=== PATIENT | female | born 1960 | race African-American/Black ===

== ENCOUNTER 2016-07-09 12:35 | Emergency (ER) | payer OTHER ==
[2016-07-09 12:48] VITALS: BP 139/93; PULSE 104; TEMP 98.2; BMI 29.5
== END 2016-07-09 13:53 | disposition left against medical advice (07) ==
LOC: JER 12:35
DX: Z53.21 Procedure and treatment not carried out due to patient leaving prior to being seen by health care provider (principal)
CPT/HCPCS: 99281-25

== ENCOUNTER 2020-03-17 01:00 | Emergency (ER) | payer OTHER ==
[2020-03-17 01:31] VITALS: TEMP 98.2; BMI 27.2
[2020-03-17] MEDS ORDERED: ALBUTEROL SO4 HFA INHALER IH ONE ×2 (01:43→02:01)
[2020-03-17] MEDS ORDERED: AZITHROMYCIN IVPB 500 MG in DEXTROSE 5%-WATER - 250 ML IVPB ONE (01:43)
[2020-03-17] MEDS ORDERED: AZITHROMYCIN IVPB 500 MG/250 ML BAG IVPB ONE (02:01)
[2020-03-17 02:08] LABS: BASO % 0.9 % (0-2.0); EOS % 2.3 % (0-4.5); HEMOGLOBIN 17.8 GM/dL (10.7-15.3); LYMPH % 20.9 % (8-40); MCH 29.6 pg (25.7-33.7); MCHC 33.6 g/dl (32.0-36.0); MEAN CELL VOLUME 88.3 fl (80-96); MEAN PLT VOLUME 8.6 fl (7.5-11.1); MONO % 6.5 % (3.8-10.2); NEUT % 69.4 % (42.8-82.8); PLATELET COUNT 268 K/MM3 (134-434); WHITE BLOOD COUNT 8.9 K/mm3 (4.0-10.0)
[2020-03-17 02:19] LABS: CHLORIDE 107 mmol/L (98-107); POTASSIUM 4.6 mmol/L (3.5-5.1); SODIUM 140 mmol/L (136-145)
[2020-03-17 02:21] LABS: CALCIUM 9.3 mg/dL (8.5-10.1)
[2020-03-17 02:22] LABS: ALBUMIN 3.6 g/dl (3.4-5.0); ANION GAP 3 MMOL/L (8-16); BLOOD UREA NITROGEN 22.9 mg/dL (7-18); CO2 30 mmol/L (21-32); GLUCOSE,RANDOM 160 mg/dL (74-106)
[2020-03-17 02:25] LABS: CREATININE 1.5 mg/dL (0.55-1.3); SGOT/AST 16 U/L (15-37); SGPT/ALT 21 U/L (13-61)
[2020-03-17 02:26] LABS: BILIRUBIN,TOTAL 0.2 mg/dL (0.2-1); TOT PROT 8.3 g/dl (6.4-8.2)
[2020-03-17 02:28] LABS: ALK PHOS 117 U/L (45-117)
[2020-03-17 02:32] LABS: N-TERMINAL BNP 89.1 pg/ml (5-125)
[2020-03-17 02:58] VITALS: BP 152/99; PULSE 110
== END 2020-03-17 03:31 | disposition left against medical advice (07) ==
LOC: JER 01:00
PROC: 3E0F7GC Introduction of Other Therapeutic Substance into Respiratory Tract, Via Natural or Artificial Opening (ICD-10-PCS; principal; 2020-03-17)
PROC: 3E03329 Introduction of Other Anti-infective into Peripheral Vein, Percutaneous Approach (ICD-10-PCS; 2020-03-17)
DX: J44.9 Chronic obstructive pulmonary disease, unspecified (principal)
CPT/HCPCS: 36415; 71046-TC-FY; 80053; 82550; 82553; 83880; 84484; 85025; 93005; 93010; 99285-25

== ENCOUNTER 2021-04-14 23:16 | Emergency (ER) | payer OTHER ==
[2021-04-14 23:27] VITALS: BP 163/102; TEMP 98.3; BMI 27.4
[2021-04-14] MEDS ORDERED: MAG HYDROX/AL HYDROX/SIMETH 30 ML UNIT-DOSE CUP PO ONE (23:45)
[2021-04-14] MEDS ORDERED: FAMOTIDINE 20 MG TABLET PO ONE (23:45)
[2021-04-14] MEDS ORDERED: LACTATED RINGERS SOLUTION 1000 ML INFUS.BAG IV ONE (23:45)
[2021-04-14] MEDS ORDERED: ASPIRIN 81 MG CHEWABLE TABLETS PO ONE (23:45)
[2021-04-15 00:07] LABS: BASO % 0.8 % (0-2.0); EOS % 3.3 % (0-4.5); HEMATOCRIT 46.8 % (32.4-45.2); MCH 29.2 pg (25.7-33.7); MCHC 34.2 g/dl (32.0-36.0); MEAN CELL VOLUME 85.4 fl (80-96); MEAN PLT VOLUME 7.8 fl (7.5-11.1); MONO % 10.3 % (3.8-10.2); NEUT % 60.6 % (42.8-82.8); PLATELET COUNT 247 10^3/uL (134-434); RBC 5.48 M/mm3 (3.60-5.2); WHITE BLOOD COUNT 8.6 K/mm3 (4.0-10.0)
[2021-04-15] MEDS ORDERED: ASPIRIN 81 MG CHEWABLE TABLETS ONE (00:07)
[2021-04-15] MEDS ORDERED: MAG HYDROX/AL HYDROX/SIMETH 30 ML UNIT-DOSE CUP ONE (00:08)
[2021-04-15] MEDS ORDERED: FAMOTIDINE 20 MG TABLET ONE (00:08)
[2021-04-15 00:17] LABS: INR 1.06 (0.83-1.09); PROTHROMBIN TIME (PATIENT) 11.9 SEC (9.7-13.0)
[2021-04-15 00:21] LABS: ACTIVATED PTT 32.6 SECONDS (25.2-36.5)
[2021-04-15 00:32] LABS: CHLORIDE 107 mmol/L (98-107); SODIUM 141 mmol/L (136-145)
[2021-04-15 00:34] LABS: ALBUMIN 3.1 g/dl (3.4-5.0); ANION GAP 7 MMOL/L (8-16); BLOOD UREA NITROGEN 26.8 mg/dL (7-18); CO2 27 mmol/L (21-32); GLUCOSE,RANDOM 215 mg/dL (74-106)
[2021-04-15 00:38] LABS: CREATININE 1.8 mg/dL (0.55-1.3); SGOT/AST 21 U/L (15-37); SGPT/ALT 25 U/L (13-61)
[2021-04-15 00:39] LABS: TOT PROT 7.8 g/dl (6.4-8.2)
[2021-04-15 00:40] LABS: ALK PHOS 117 U/L (45-117); BILIRUBIN,TOTAL 0.2 mg/dL (0.2-1)
[2021-04-15 00:43] LABS: N-TERMINAL BNP 76.6 pg/ml (5-125)
[2021-04-15 02:23] VITALS: PULSE 98
== END 2021-04-15 02:36 | disposition home or self-care (01) ==
LOC: JER 23:16
DX: R07.9 Chest pain, unspecified (principal)
CPT/HCPCS: 36415; 71045-TC-FY; 80053; 82550; 82553; 83880; 84484; 85025; 85610; 85730; 87804; 87807; 93005; 93010; 99285-25; C9803; U0003; U0005

== ENCOUNTER 2023-10-15 12:43 | Inpatient (IN) | payer OTHER ==
[2023-10-15] MEDS: SODIUM CHLORIDE 0.9% 500 ML INFUS.BAG IV ONE (14:49)
[2023-10-15 14:59] LABS: HEMATOCRIT 42.6 % (32.4-45.2); HEMOGLOBIN 14.4 GM/dL (10.7-15.3); LYMPH % 14.1 % (8-40); MCH 27.9 pg (25.7-33.7); MCHC 33.7 g/dl (32.0-36.0); MEAN PLT VOLUME 8.2 fl (7.5-11.1); MONO % 12.3 % (3.8-10.2); NEUT % 70.6 % (42.8-82.8); PLATELET COUNT 264 10^3/uL (134-434); RBC 5.14 M/mm3 (3.60-5.2); RDW 15.1 % (11.6-15.6); WHITE BLOOD COUNT 10.7 K/mm3 (4.0-10.0)
[2023-10-15 15:01] LABS: PH,URINE 5.5 (5.0-8.0); URINE APPEARANCE CLEAR; URINE BILIRUBIN NEGATIVE (NEGATIVE); URINE COLOR YELLOW; URINE GLUCOSE (UA) NEGATIVE (NEGATIVE); URINE KETONE NEGATIVE (NEGATIVE); URINE LEUK ESTERASE NEGATIVE (NEGATIVE); URINE NITRITE NEGATIVE (NEGATIVE); URINE PROTEIN 3+ (NEGATIVE); URINE UROBILINOGEN 0.2 mg/dL (0.2-1.0)
[2023-10-15 15:06] LABS: EPI CELLS 11.1 /uL (0-25.1); HYALINE CASTS 2.92 /uL (0-3.1); URINE BACTERIA 12.3 /uL (0-1359); URINE RBC 13.5 /uL (0-23.9); URINE WBC 24.9 /uL (0-25.8)
[2023-10-15 15:17] LABS: POTASSIUM 4.4 mmol/L (3.5-5.1)
[2023-10-15 15:22] LABS: BLOOD UREA NITROGEN 50.6 mg/dL (7-18); CALCIUM 8.8 mg/dL (8.5-10.1)
[2023-10-15] MEDS ORDERED: ACETAMINOPHEN INJECTION 100 ML IVPB ONE (15:22)
[2023-10-15 15:23] LABS: ALBUMIN 2.4 g/dl (3.4-5.0)
[2023-10-15 15:25] LABS: CREATININE 2.8 mg/dL (0.55-1.3)
[2023-10-15] MEDS: ACETAMINOPHEN 1000 MG/100 ML BAG IVPB ONE (15:25)
[2023-10-15 15:27] LABS: BILIRUBIN,TOTAL 0.3 mg/dL (0.2-1); TOT PROT 7.2 g/dl (6.4-8.2)
[2023-10-15 15:30] LABS: N-TERMINAL BNP 1934.4 pg/ml (5-125)
[2023-10-15] MEDS ORDERED: DOCUSATE SODIUM 100 MG CAPSULE (FP) PO PRN (21:03)
[2023-10-15] MEDS: SODIUM CHLORIDE 1,000 ML IV SCH (21:29)
[2023-10-16 01:33] VITALS: BMI 35.4
[2023-10-16] MEDS: INSULIN ASPART SLIDING SCALE (NOVOLOG) 1 VIAL SQ SCH (06:51)
[2023-10-16] MEDS: LEVOTHYROXINE NA 25 MCG TABLET (FP) PO SCH (06:51)
[2023-10-16 07:23] LABS: BASO % 1.2 % (0-2.0); EOS % 2.7 % (0-4.5); HEMATOCRIT 42.2 % (32.4-45.2); HEMOGLOBIN 13.8 GM/dL (10.7-15.3); LYMPH % 8.5 % (8-40); MCH 27.6 pg (25.7-33.7); MCHC 32.7 g/dl (32.0-36.0); MEAN CELL VOLUME 84.4 fl (80-96); MEAN PLT VOLUME 8.3 fl (7.5-11.1); MONO % 12.7 % (3.8-10.2); NEUT % 74.9 % (42.8-82.8); PLATELET COUNT 244 10^3/uL (134-434); RDW 14.8 % (11.6-15.6); WHITE BLOOD COUNT 9.5 K/mm3 (4.0-10.0)
[2023-10-16 07:34] LABS: INR 1.19 (0.83-1.09); PROTHROMBIN TIME (PATIENT) 13.6 SEC (9.7-13.0)
[2023-10-16 07:36] LABS: ACTIVATED PTT 34.6 SECONDS (25.2-36.5)
[2023-10-16 07:40] LABS: POTASSIUM 4.7 mmol/L (3.5-5.1)
[2023-10-16 07:41] LABS: CALCIUM 8.8 mg/dL (8.5-10.1)
[2023-10-16 07:42] LABS: BLOOD UREA NITROGEN 42.8 mg/dL (7-18); MAGNESIUM 2.2 mg/dL (1.8-2.4)
[2023-10-16 07:45] LABS: CREATININE 2.3 mg/dL (0.55-1.3); PHOSPHOROUS 2.7 mg/dL (2.5-4.9)
[2023-10-16] MEDS: ALBUTEROL SO4 HFA INHALER IH SCH (10:56)
[2023-10-16] MEDS: ALLOPURINOL 300 MG TABLET (FP) PO SCH (10:57)
[2023-10-16] MEDS: CHOLECALCIFEROL (VIT D3) 1,000 UNIT (25 MCG) TABLET PO SCH (10:57)
[2023-10-16] MEDS: HYDROCHLOROTHIAZIDE 25 MG TABLET (FP) PO SCH (10:57)
[2023-10-16] MEDS: ASPIRIN COATED 81 MG TABLET.EC PO SCH (10:57)
[2023-10-16] MEDS: amLODIPine BESYLATE 10 MG TABLET (FP) PO SCH (10:57)
[2023-10-16] MEDS: AMIODARONE HCL 200 MG TABLET PO SCH (10:58)
[2023-10-16] MEDS: BUDESONIDE/FORMETEROL FUMARATE 160/4.5 mcg INHALER IH SCH (11:00)
[2023-10-16] MEDS: HEPARIN NA (PORCINE) 5,000 UNITS/ML 1ML VIAL SQ SCH (13:26)
[2023-10-16] MEDS: methylPREDNISolone NA SUCC 40 MG/1 ML VIAL IVPUSH SCH (13:33)
[2023-10-16] MEDS: ALBUTEROL SO4 2.5/IPRATROPIUM 0.5 INH SOL 3 ML VIAL.NEB. NEB SCH (15:22)
[2023-10-16] MEDS ORDERED: ROSUVASTATIN CA 40 MG TABLET PO SCH (22:00)
[2023-10-16] MEDS: ROSUVASTATIN CA 20 MG TABLET PO SCH (22:35)
[2023-10-17 00:01] LABS: EPI CELLS 4 /uL (0-25.1); HYALINE CASTS 2 /uL (0-3.1); PH,URINE 5.5 (5.0-8.0); URINE APPEARANCE CLEAR; URINE BACTERIA 1 /uL (0-1359); URINE BILIRUBIN NEGATIVE (NEGATIVE); URINE COLOR YELLOW; URINE GLUCOSE (UA) 3+ (NEGATIVE); URINE KETONE NEGATIVE (NEGATIVE); URINE LEUK ESTERASE NEGATIVE (NEGATIVE); URINE NITRITE NEGATIVE (NEGATIVE); URINE PROTEIN 3+ (NEGATIVE); URINE RBC 6 /uL (0-23.9); URINE UROBILINOGEN 0.2 mg/dL (0.2-1.0); URINE WBC 7 /uL (0-25.8)
[2023-10-17 08:02] LABS: CHLORIDE 105 mmol/L (98-107); POTASSIUM 4.5 mmol/L (3.5-5.1); SODIUM 137 mmol/L (136-145)
[2023-10-17 08:06] LABS: ALBUMIN 2.2 g/dl (3.4-5.0); ANION GAP 7 mmol/L (4-13); CALCIUM 8.9 mg/dL (8.5-10.1); CO2 26 mmol/L (21-32)
[2023-10-17 08:09] LABS: CREATININE 2.4 mg/dL (0.55-1.3); SGOT/AST 20 U/L (15-37)
[2023-10-17 08:10] LABS: SGPT/ALT 42 U/L (13-61)
[2023-10-17 08:11] LABS: BILIRUBIN,TOTAL 0.4 mg/dL (0.2-1); TOT PROT 6.7 g/dl (6.4-8.2)
[2023-10-17 08:12] LABS: ALK PHOS 124 U/L (45-117)
[2023-10-17 08:13] LABS: GLUCOSE,RANDOM 452 mg/dL (74-106)
[2023-10-17] MEDS: INSULIN (LEVEMIR) 100 UNITS/ML UNITS SQ SCH (09:31)
[2023-10-17] MEDS: ACETAMINOPHEN 325 MG TABLET (FP) PO PRN (15:00)
[2023-10-17 15:10] VITALS: RESP 18
[2023-10-18 08:12] LABS: POTASSIUM 4.6 mmol/L (3.5-5.1)
[2023-10-18 08:19] LABS: CALCIUM 9.8 mg/dL (8.5-10.1)
[2023-10-18 08:20] LABS: ALBUMIN 2.6 g/dl (3.4-5.0); BLOOD UREA NITROGEN 58.2 mg/dL (7-18)
[2023-10-18 08:23] LABS: CREATININE 2.5 mg/dL (0.55-1.3)
[2023-10-18 08:25] LABS: BILIRUBIN,TOTAL 0.4 mg/dL (0.2-1); TOT PROT 7.3 g/dl (6.4-8.2)
[2023-10-18 12:29] VITALS: BP 118/83; PULSE 80; TEMP 98.2
== END 2023-10-18 16:00 | disposition home or self-care (01) | DRG 140 ==
LOC: JER 12:43 → JERBED 20:39 → J4W 22:08
PROVIDERS: ADMIT Internal Medicine; ATTEND Family Medicine
DX: J44.1 Chronic obstructive pulmonary disease with (acute) exacerbation (principal); I50.22 Chronic systolic (congestive) heart failure; E11.22 Type 2 diabetes mellitus with diabetic chronic kidney disease; I24.89 Other forms of acute ischemic heart disease; I13.0 Hypertensive heart and chronic kidney disease with heart failure and stage 1 through stage 4 chronic kidney disease, or unspecified chronic kidney disease; N28.1 Cyst of kidney, acquired; Z99.81 Dependence on supplemental oxygen; I25.10 Atherosclerotic heart disease of native coronary artery without angina pectoris; R91.8 Other nonspecific abnormal finding of lung field; N18.9 Chronic kidney disease, unspecified; M10.9 Gout, unspecified; E78.5 Hyperlipidemia, unspecified; Z79.84 Long term (current) use of oral hypoglycemic drugs; R79.89 Other specified abnormal findings of blood chemistry
CPT/HCPCS: 0241U-QW; 36415; 71046-TC-FY; 71250-TC; 76775-TC; 80048; 80053; 81003; 82550; 82962; 83605; 83690; 83735; 83880; 84100; 84443; 84484; 85025; 85610; 85730; 86140; 87086; 93005; 93010; 93306-TC; 94640; 97116-GP; 97161-GP; 99285-25; J0131; J1644

== ENCOUNTER 2023-10-20 08:59 | Inpatient (IN) | payer OTHER ==
[2023-10-20] MEDS ORDERED: ALBUTEROL SO4 2.5/IPRATROPIUM 0.5 INH SOL 3 ML VIAL.NEB. NEB SCH (09:45)
[2023-10-20] MEDS ORDERED: methylPREDNISolone NA SUCC 125 MG/2 ML VIAL ONE (09:48)
[2023-10-20] MEDS: methylPREDNISolone NA SUCC 125 MG/2 ML VIAL IVPB ONE (10:12)
[2023-10-20] MEDS: ALBUTEROL SO4 2.5/IPRATROPIUM 0.5 INH SOL 3 ML VIAL.NEB. NEB SCH (10:15)
[2023-10-20 10:26] LABS: VENOUS BASE EXCESS -0.4 mmol/L (-2-2); VENOUS O2 SATURATION 87.5 % (70-80); VENOUS PCO2 48.4 mmHg (38-52); VENOUS PH 7.346 (7.310-7.410)
[2023-10-20 10:27] LABS: BASO % 0.4 % (0-2.0); EOS % 0.7 % (0-4.5); HEMATOCRIT 42.5 % (32.4-45.2); HEMOGLOBIN 13.8 GM/dL (10.7-15.3); LYMPH % 9.2 % (8-40); MCH 27.3 pg (25.7-33.7); MCHC 32.5 g/dl (32.0-36.0); MEAN CELL VOLUME 84.2 fl (80-96); MEAN PLT VOLUME 8.5 fl (7.5-11.1); MONO % 10.6 % (3.8-10.2); NEUT % 79.1 % (42.8-82.8); PLATELET COUNT 272 10^3/uL (134-434); RBC 5.05 M/mm3 (3.60-5.2); RDW 14.7 % (11.6-15.6); WHITE BLOOD COUNT 14.4 K/mm3 (4.0-10.0)
[2023-10-20 10:34] LABS: INR 1.2 (0.83-1.09); PROTHROMBIN TIME (PATIENT) 13.5 SEC (9.7-13.0)
[2023-10-20 10:44] LABS: CHLORIDE 102 mmol/L (98-107); POTASSIUM 5.3 mmol/L (3.5-5.1); SODIUM 134 mmol/L (136-145)
[2023-10-20 10:46] LABS: ALBUMIN 2.6 g/dl (3.4-5.0); ANION GAP 7 mmol/L (4-13); BLOOD UREA NITROGEN 63.1 mg/dL (7-18); CALCIUM 9.5 mg/dL (8.5-10.1); CO2 25 mmol/L (21-32)
[2023-10-20 10:49] LABS: CREATININE 2.6 mg/dL (0.55-1.3); SGOT/AST 34 U/L (15-37); SGPT/ALT 60 U/L (13-61)
[2023-10-20 10:51] LABS: BILIRUBIN,TOTAL 0.6 mg/dL (0.2-1); TOT PROT 7.4 g/dl (6.4-8.2)
[2023-10-20 10:52] LABS: ALK PHOS 138 U/L (45-117)
[2023-10-20 10:57] LABS: GLUCOSE,RANDOM 490 mg/dL (74-106)
[2023-10-20] MEDS: INSULIN ASPART SLIDING SCALE (NOVOLOG) 1 VIAL SQ SCH (17:57)
[2023-10-20] MEDS ORDERED: INSULIN (NOVOLOG) ASPART 100 UNITS/ML 10ML VIAL SQ SCH (18:00)
[2023-10-20 18:33] VITALS: BMI 30.7
[2023-10-20] MEDS ORDERED: methylPREDNISolone NA SUCC 40 MG/1 ML VIAL IVPUSH SCH (21:00)
[2023-10-20] MEDS: AMIODARONE HCL 100 MG TABLET PO SCH (21:40)
[2023-10-20] MEDS: INSULIN (NOVOLOG) ASPART 100 UNITS/ML 10ML VIAL SQ ONE (21:40)
[2023-10-20] MEDS: INSULIN (LEVEMIR) 100 UNITS/ML UNITS SQ SCH (21:40)
[2023-10-21] MEDS: methylPREDNISolone NA SUCC 40 MG/1 ML VIAL IVPUSH SCH ×2 (01:58→21:54)
[2023-10-21] MEDS: LEVOTHYROXINE NA 25 MCG TABLET (FP) PO SCH (06:31)
[2023-10-21 07:08] LABS: HEMATOCRIT 40.3 % (32.4-45.2); HEMOGLOBIN 13.2 GM/dL (10.7-15.3); MCH 27.4 pg (25.7-33.7); MCHC 32.7 g/dl (32.0-36.0); MEAN CELL VOLUME 83.8 fl (80-96); MEAN PLT VOLUME 8.3 fl (7.5-11.1); PLATELET COUNT 225 10^3/uL (134-434); RBC 4.81 M/mm3 (3.60-5.2); RDW 14.8 % (11.6-15.6); WHITE BLOOD COUNT 15.4 K/mm3 (4.0-10.0)
[2023-10-21 07:27] LABS: CHLORIDE 101 mmol/L (98-107); POTASSIUM 5.1 mmol/L (3.5-5.1); SODIUM 135 mmol/L (136-145)
[2023-10-21 07:29] LABS: ALBUMIN 2.4 g/dl (3.4-5.0); ANION GAP 7 mmol/L (4-13); BLOOD UREA NITROGEN 66.9 mg/dL (7-18); CALCIUM 9.8 mg/dL (8.5-10.1); CO2 27 mmol/L (21-32); MAGNESIUM 2.5 mg/dL (1.8-2.4)
[2023-10-21 07:33] LABS: CHOLESTEROL 153 mg/dL (50-200); CREATININE 2.3 mg/dL (0.55-1.3); SGOT/AST 16 U/L (15-37); SGPT/ALT 50 U/L (13-61)
[2023-10-21 07:34] LABS: ALK PHOS 122 U/L (45-117); BILIRUBIN,TOTAL 0.4 mg/dL (0.2-1); HDL CHOLESTEROL 56 mg/dL (40-60); LDL CHOLESTEROL (ONLY SJRH) 81 mg/dL (5-100); TOT PROT 6.7 g/dl (6.4-8.2)
[2023-10-21 07:49] LABS: GLUCOSE,RANDOM 480 mg/dL (74-106)
[2023-10-21] MEDS: amLODIPine BESYLATE 10 MG TABLET (FP) PO SCH (09:42)
[2023-10-21] MEDS: INSULIN (LEVEMIR) 100 UNITS/ML UNITS SQ ONE (12:34)
[2023-10-21] MEDS: INSULIN ASPART SLIDING SCALE (NOVOLOG) 1 VIAL SQ SCH (12:36)
[2023-10-21] MEDS: INSULIN (LEVEMIR) 100 UNITS/ML UNITS SQ SCH (21:54)
[2023-10-21] MEDS: ALBUTEROL SO4 2.5/IPRATROPIUM 0.5 INH SOL 3 ML VIAL.NEB. NEB PRN (22:33)
[2023-10-23] MEDS: methylPREDNISolone NA SUCC 40 MG/1 ML VIAL IVPUSH SCH (09:48)
[2023-10-23] MEDS: INSULIN (LEVEMIR) 100 UNITS/ML UNITS SQ ONE (09:50)
[2023-10-23] MEDS: INSULIN (LEVEMIR) 100 UNITS/ML UNITS SQ SCH (22:12)
[2023-10-24] MEDS: INSULIN (NOVOLOG) ASPART 100 UNITS/ML 10ML VIAL SQ SCH (06:23)
[2023-10-24] MEDS: INSULIN (LEVEMIR) 100 UNITS/ML UNITS SQ SCH (06:23)
[2023-10-24 06:54] LABS: POTASSIUM 4.7 mmol/L (3.5-5.1)
[2023-10-24 07:00] LABS: CALCIUM 10.5 mg/dL (8.5-10.1)
[2023-10-24 07:01] LABS: ALBUMIN 2.4 g/dl (3.4-5.0); BLOOD UREA NITROGEN 74.9 mg/dL (7-18)
[2023-10-24 07:05] LABS: BILIRUBIN,TOTAL 0.5 mg/dL (0.2-1); TOT PROT 6.4 g/dl (6.4-8.2)
[2023-10-24 12:32] LABS: HEMATOCRIT 52.2 % (32.4-45.2); HEMOGLOBIN 16.8 GM/dL (10.7-15.3); MCH 27.4 pg (25.7-33.7); MCHC 32.2 g/dl (32.0-36.0); MEAN CELL VOLUME 84.9 fl (80-96); MEAN PLT VOLUME 8.2 fl (7.5-11.1); PLATELET COUNT 361 10^3/uL (134-434); RBC 6.15 M/mm3 (3.60-5.2); WHITE BLOOD COUNT 23.1 K/mm3 (4.0-10.0)
[2023-10-24 12:59] LABS: POTASSIUM 4.8 mmol/L (3.5-5.1)
[2023-10-24 13:02] LABS: BLOOD UREA NITROGEN 75.9 mg/dL (7-18); CALCIUM 11.1 mg/dL (8.5-10.1)
[2023-10-24 13:07] LABS: BILIRUBIN,TOTAL 0.5 mg/dL (0.2-1); TOT PROT 7.9 g/dl (6.4-8.2)
[2023-10-24 13:37] LABS: ANISOCYTOSIS 2+; MACROCYTOSIS 0
[2023-10-24] MEDS ORDERED: ACETAMINOPHEN 500 MG TABLET (FP) PO ONE (19:20)
[2023-10-24] MEDS: ACETAMINOPHEN 500 MG TABLET (FP) PO ONE (20:27)
[2023-10-26] MEDS: ACETAMINOPHEN 500 MG TABLET (FP) PO ONE (01:25)
[2023-10-26] MEDS: INSULIN (NOVOLOG) ASPART 100 UNITS/ML 10ML VIAL SQ SCH (06:09)
[2023-10-26 08:26] LABS: INR 1.08 (0.83-1.09); PROTHROMBIN TIME (PATIENT) 12.2 SEC (9.7-13.0)
[2023-10-26 08:53] LABS: CALCIUM 10.6 mg/dL (8.5-10.1)
[2023-10-26 08:54] LABS: ALBUMIN 2.7 g/dl (3.4-5.0); TOT PROT 7.3 g/dl (6.4-8.2)
[2023-10-26 08:55] LABS: BILIRUBIN,TOTAL 0.6 mg/dL (0.2-1); BLOOD UREA NITROGEN 81.8 mg/dL (7-18)
[2023-10-26 08:57] LABS: CREATININE 2.1 mg/dL (0.55-1.3)
[2023-10-26 09:02] LABS: HEMATOCRIT 51.3 % (32.4-45.2); HEMOGLOBIN 16.5 GM/dL (10.7-15.3); MCH 27.3 pg (25.7-33.7); MCHC 32.1 g/dl (32.0-36.0); MEAN CELL VOLUME 85.2 fl (80-96); MEAN PLT VOLUME 8.7 fl (7.5-11.1); PLATELET COUNT 319 10^3/uL (134-434); RBC 6.02 M/mm3 (3.60-5.2); RDW 15.1 % (11.6-15.6); WHITE BLOOD COUNT 20.3 K/mm3 (4.0-10.0)
[2023-10-26 10:55] LABS: ANISOCYTOSIS 0; HELMET CELLS 0; HOWELL-JOLLY BODIES 0; MACROCYTOSIS 0; OVALOCYTE 0; ROULEAU 0; SICKELED CELLS 0; TARGET CELLS 0; TEAR DROP CELLS 0; TOXIC GRANULATION 0
[2023-10-26] MEDS: ACETAMINOPHEN 325 MG TABLET (FP) PO PRN (12:40)
[2023-10-26] MEDS: SODIUM CHLORIDE 0.45% 1,000 ML IV SCH (14:07)
[2023-10-27] MEDS: INSULIN (LEVEMIR) 100 UNITS/ML UNITS SQ SCH (06:23)
[2023-10-27 07:24] LABS: POTASSIUM 4.9 mmol/L (3.5-5.1)
[2023-10-27 07:37] LABS: CALCIUM 10.4 mg/dL (8.5-10.1)
[2023-10-27 07:38] LABS: ALBUMIN 2.6 g/dl (3.4-5.0); BLOOD UREA NITROGEN 73.5 mg/dL (7-18)
[2023-10-27 07:41] LABS: CREATININE 1.8 mg/dL (0.55-1.3)
[2023-10-27 07:42] LABS: BILIRUBIN,TOTAL 0.5 mg/dL (0.2-1); TOT PROT 6.9 g/dl (6.4-8.2)
[2023-10-27] MEDS: ALBUTEROL SO4 2.5/IPRATROPIUM 0.5 INH SOL 3 ML VIAL.NEB. NEB SCH (11:45)
[2023-10-27] MEDS: BUDESONIDE/FORMETEROL FUMARATE 160/4.5 mcg INHALER IH SCH (13:16)
[2023-10-27] MEDS ORDERED: INSULIN ASPART SLIDING SCALE (NOVOLOG) 1 VIAL SQ ONE (21:05)
[2023-10-28] MEDS ORDERED: INSULIN ASPART SLIDING SCALE (NOVOLOG) 1 VIAL SQ ONE (06:05)
[2023-10-28 07:23] LABS: BASO % 0.1 % (0-2.0); HEMATOCRIT 42.6 % (32.4-45.2); HEMOGLOBIN 13.7 GM/dL (10.7-15.3); LYMPH % 3.8 % (8-40); MCH 27.4 pg (25.7-33.7); MCHC 32.3 g/dl (32.0-36.0); MEAN CELL VOLUME 84.9 fl (80-96); MEAN PLT VOLUME 8.7 fl (7.5-11.1); MONO % 5.8 % (3.8-10.2); NEUT % 90.3 % (42.8-82.8); PLATELET COUNT 240 10^3/uL (134-434); RBC 5.01 M/mm3 (3.60-5.2); RDW 15.3 % (11.6-15.6); WHITE BLOOD COUNT 15.8 K/mm3 (4.0-10.0)
[2023-10-28 07:52] LABS: POTASSIUM 4.8 mmol/L (3.5-5.1)
[2023-10-28 08:04] LABS: ALBUMIN 2.2 g/dl (3.4-5.0); CALCIUM 9.5 mg/dL (8.5-10.1)
[2023-10-28 08:05] LABS: BLOOD UREA NITROGEN 73.6 mg/dL (7-18)
[2023-10-28 08:09] LABS: BILIRUBIN,TOTAL 0.3 mg/dL (0.2-1); TOT PROT 5.9 g/dl (6.4-8.2)
[2023-10-28] MEDS: predniSONE 20 MG TABLET (UD) PO SCH (10:34)
[2023-10-28] MEDS ORDERED: MAGNESIUM HYDROX 2400MG/30ML ORAL SUSPENSION 30 ML CUP PO PRN (17:11)
[2023-10-28] MEDS ORDERED: SENNOSIDES/DOCUSATE COMBO (SENNA PLUS) TABLET (UD) PO PRN (17:11)
[2023-10-28] MEDS: POLYETHYLENE GLYCOL (HEALTHYLAX) 3350 17 GM PACKET PO SCH (17:41)
[2023-10-29 07:08] VITALS: BP 158/86; PULSE 97; RESP 19; TEMP 97.8
== END 2023-10-29 10:47 | disposition home or self-care (01) | DRG 180 ==
LOC: JER 08:59 → JERBED 12:53 → J4W 15:47
PROVIDERS: ADMIT Family Medicine; ATTEND Family Medicine
PROC: 0BBG3ZX Excision of Left Upper Lung Lobe, Percutaneous Approach, Diagnostic (ICD-10-PCS; principal; 2023-10-27)
DX: C34.12 Malignant neoplasm of upper lobe, left bronchus or lung (principal); I50.33 Acute on chronic diastolic (congestive) heart failure; I13.0 Hypertensive heart and chronic kidney disease with heart failure and stage 1 through stage 4 chronic kidney disease, or unspecified chronic kidney disease; J44.1 Chronic obstructive pulmonary disease with (acute) exacerbation; E78.5 Hyperlipidemia, unspecified; I25.10 Atherosclerotic heart disease of native coronary artery without angina pectoris; R91.8 Other nonspecific abnormal finding of lung field; E11.65 Type 2 diabetes mellitus with hyperglycemia; Z87.891 Personal history of nicotine dependence; E11.40 Type 2 diabetes mellitus with diabetic neuropathy, unspecified; E11.22 Type 2 diabetes mellitus with diabetic chronic kidney disease; E03.9 Hypothyroidism, unspecified; N18.9 Chronic kidney disease, unspecified
CPT/HCPCS: 0241U-QW; 32408; 36415; 71045-TC-FY; 71046-TC-FY; 77012-TC; 80053; 80061; 80299; 82803; 82962; 83036; 83605; 83735; 83880; 83970; 84443; 84484; 85025; 85610; 85730; 86850; 86900; 86901; 87070; 87075; 87116; 87205; 87206; 88305-TC; 93970-TC; 94640; 94761; 97116-GP; 97161-GP; 99285-25

== ENCOUNTER 2023-11-09 00:57 | Inpatient (IN) | payer OTHER ==
[2023-11-09 01:08] VITALS: BMI 30.8
[2023-11-09] MEDS ORDERED: ACETAMINOPHEN INJECTION 100 ML IVPB ONE (02:38)
[2023-11-09 03:04] LABS: HEMATOCRIT 39.8 % (32.4-45.2); MCH 27.3 pg (25.7-33.7); MCHC 32.8 g/dl (32.0-36.0); MEAN CELL VOLUME 83.4 fl (80-96); MEAN PLT VOLUME 8.3 fl (7.5-11.1); PLATELET COUNT 262 10^3/uL (134-434); RBC 4.77 M/mm3 (3.60-5.2); RDW 14.9 % (11.6-15.6); WHITE BLOOD COUNT 14.9 K/mm3 (4.0-10.0)
[2023-11-09] MEDS: ACETAMINOPHEN 1000 MG/100 ML BAG IVPB ONE (03:09)
[2023-11-09 03:15] LABS: INR 1.27 (0.83-1.09); PROTHROMBIN TIME (PATIENT) 14.3 SEC (9.7-13.0)
[2023-11-09 03:18] LABS: ACTIVATED PTT 29.9 SECONDS (25.2-36.5)
[2023-11-09 03:20] LABS: POTASSIUM 4.7 mmol/L (3.5-5.1)
[2023-11-09 03:21] LABS: ALBUMIN 1.9 g/dl (3.4-5.0); CALCIUM 9.6 mg/dL (8.5-10.1)
[2023-11-09 03:23] LABS: BLOOD UREA NITROGEN 55.8 mg/dL (7-18)
[2023-11-09 03:25] LABS: CREATININE 1.9 mg/dL (0.55-1.3)
[2023-11-09 03:27] LABS: BILIRUBIN,TOTAL 0.4 mg/dL (0.2-1); TOT PROT 6.3 g/dl (6.4-8.2)
[2023-11-09] MEDS ORDERED: ACETAMINOPHEN 500 MG TABLET (FP) ONE (09:05)
[2023-11-09] MEDS: ACETAMINOPHEN 500 MG TABLET (FP) PO ONE (09:16)
[2023-11-09] MEDS: ACETAMINOPHEN 325 MG TABLET (FP) PO PRN (13:05)
[2023-11-09] MEDS: INSULIN ASPART SLIDING SCALE (NOVOLOG) 1 VIAL SQ SCH (16:49)
[2023-11-09] MEDS: traMADol HCL 50 MG TABLET PO ONE (17:57)
[2023-11-09] MEDS: AMIODARONE HCL 200 MG TABLET PO SCH (21:38)
[2023-11-09] MEDS: ROSUVASTATIN CA 10 MG TABLET PO SCH (21:38)
[2023-11-09] MEDS: INSULIN (LEVEMIR) 100 UNITS/ML UNITS SQ SCH (21:43)
[2023-11-09] MEDS: BUDESONIDE/FORMETEROL FUMARATE 80/4.5 mcg INHALER IH SCH (21:45)
[2023-11-10 04:04] LABS: BASO % 0.3 % (0-2.0); HEMATOCRIT 38.5 % (32.4-45.2); HEMOGLOBIN 12.9 GM/dL (10.7-15.3); LYMPH % 5.5 % (8-40); MCH 27.6 pg (25.7-33.7); MCHC 33.5 g/dl (32.0-36.0); MEAN CELL VOLUME 82.5 fl (80-96); MEAN PLT VOLUME 8.7 fl (7.5-11.1); MONO % 3.9 % (3.8-10.2); NEUT % 89.3 % (42.8-82.8); PLATELET COUNT 285 10^3/uL (134-434); RBC 4.67 M/mm3 (3.60-5.2); RDW 14.9 % (11.6-15.6); WHITE BLOOD COUNT 11.1 K/mm3 (4.0-10.0)
[2023-11-10] MEDS: ACETAMINOPHEN 1000 MG/100 ML BAG IVPB ONE (04:06)
[2023-11-10 04:08] LABS: EPI CELLS 18 /uL (0-25.1); HYALINE CASTS 1 /uL (0-3.1); PH,URINE 5.5 (5.0-8.0); URINE APPEARANCE CLEAR; URINE BACTERIA 12 /uL (0-1359); URINE BILIRUBIN NEGATIVE (NEGATIVE); URINE COLOR YELLOW; URINE GLUCOSE (UA) NEGATIVE (NEGATIVE); URINE KETONE NEGATIVE (NEGATIVE); URINE LEUK ESTERASE NEGATIVE (NEGATIVE); URINE NITRITE NEGATIVE (NEGATIVE); URINE PROTEIN 3+ (NEGATIVE); URINE RBC 25 /uL (0-23.9); URINE UROBILINOGEN 0.2 mg/dL (0.2-1.0); URINE WBC 25 /uL (0-25.8)
[2023-11-10 04:25] LABS: POTASSIUM 4.7 mmol/L (3.5-5.1)
[2023-11-10 04:26] LABS: CALCIUM 9.1 mg/dL (8.5-10.1)
[2023-11-10 04:27] LABS: BLOOD UREA NITROGEN 50.4 mg/dL (7-18)
[2023-11-10 04:29] LABS: CREATININE 1.7 mg/dL (0.55-1.3)
[2023-11-10] MEDS: LEVOTHYROXINE NA 25 MCG TABLET (FP) PO SCH (06:09)
[2023-11-10] MEDS: PIPERACILLIN/TAZOB 3.375 GM 3.375 GM in DEXTROSE 5%-WATER - 50 ML IVPB ONE (06:55)
[2023-11-10] MEDS: VANCOMYCIN/WATER 1250 MG 1,250 MG/250 ML BAG IVPB ONE (07:43)
[2023-11-10] MEDS: ALLOPURINOL 300 MG TABLET (FP) PO SCH (11:18)
[2023-11-10] MEDS: amLODIPine BESYLATE 10 MG TABLET (FP) PO SCH (11:18)
[2023-11-10] MEDS: LIDOCAINE 5% TOPICAL PATCH TP SCH (12:32)
[2023-11-10] MEDS: PIPERACILLIN/TAZOB 3.375 GM 3.375 GM in DEXTROSE 5%-WATER - 50 ML IVPB SCH (17:15)
[2023-11-10] MEDS: LIDOCAINE PATCH REMOVAL MC SCH (21:40)
[2023-11-11] MEDS: HEPARIN NA (PORCINE) 5,000 UNITS/ML 1ML VIAL SQ SCH (21:05)
[2023-11-12 10:03] LABS: BLOOD UREA NITROGEN 33.5 mg/dL (7-18); CALCIUM 8.6 mg/dL (8.5-10.1); CREATININE 1.8 mg/dL (0.55-1.3); POTASSIUM 4.2 mmol/L (3.5-5.1)
[2023-11-12] MEDS: AMOX TR/POT CLAV 500MG/125MG TABLETS (FP) PO SCH (17:35)
[2023-11-12] MEDS: FUROSEMIDE 40 MG/4 ML INJECTABLE VIAL IVPUSH ONE (17:36)
[2023-11-12 18:48] VITALS: RESP 18
[2023-11-13 15:09] VITALS: BP 134/82; PULSE 89; TEMP 98.4
== END 2023-11-13 18:45 | DRG 181 ==
LOC: JER 00:57 → JERBED 04:54 → J4S 11:27 → OBSVTOIN 14:46
PROVIDERS: ADMIT Family Medicine; ATTEND Family Medicine
DX: C34.90 Malignant neoplasm of unspecified part of unspecified bronchus or lung (principal); I13.0 Hypertensive heart and chronic kidney disease with heart failure and stage 1 through stage 4 chronic kidney disease, or unspecified chronic kidney disease; N17.9 Acute kidney failure, unspecified; I50.32 Chronic diastolic (congestive) heart failure; J44.9 Chronic obstructive pulmonary disease, unspecified; I25.10 Atherosclerotic heart disease of native coronary artery without angina pectoris; E78.5 Hyperlipidemia, unspecified; R53.1 Weakness; R55 Syncope and collapse; E66.9 Obesity, unspecified; Z68.29 Body mass index [BMI] 29.0-29.9, adult; N28.1 Cyst of kidney, acquired; R79.89 Other specified abnormal findings of blood chemistry; R50.9 Fever, unspecified; D72.829 Elevated white blood cell count, unspecified; E11.22 Type 2 diabetes mellitus with diabetic chronic kidney disease; N18.9 Chronic kidney disease, unspecified; E03.9 Hypothyroidism, unspecified; Z95.0 Presence of cardiac pacemaker; W18.30XA Fall on same level, unspecified, initial encounter; Y92.098 Other place in other non-institutional residence as the place of occurrence of the external cause; Y99.9 Unspecified external cause status
CPT/HCPCS: 36415; 70450-TC; 71045-TC-FY; 72125-TC; 72170-TC-FY; 80048; 80053; 81003; 82962; 84484; 85025; 85610; 85730; 86850; 86900; 86901; 87040; 87086; 93005; 93010; 97116-GP; 97161-GP; 99285-25; G0378; J0131; J1644

== ENCOUNTER 2024-08-26 05:20 | Inpatient (IN) | payer OTHER ==
[2024-08-26 05:30] VITALS: BMI 20.8
[2024-08-26] MEDS ORDERED: morphine SULFATE 4 MG/ML VIAL ONE (05:55)
[2024-08-26] MEDS: morphine CARPU-JECT 4 MG/1 ML DISP.SYRIN IVPUSH ONE (06:10)
[2024-08-26 06:40] LABS: ABSOLUTE IMMATURE GRANULOCYTES 0.05 x10^3/uL (0.0-0.031); BASOPHILS # 0.08 x10^3/uL (0.01-0.08); EOSINOPHIL % 1.5 % (0.7-5.8); EOSINOPHILS # 0.15 x10^3/uL (0.04-0.36); HEMATOCRIT 43.3 % (34.1-44.9); HEMOGLOBIN 13.6 g/dL (11.2-15.7); MCHC 31.4 g/dl (32.2-35.5); MEAN CELL VOLUME 87.1 fl (79.4-94.8); MEAN PLT VOLUME 9.4 fl (9.4-12.3); MONOCYTE # 1.06 x10^3/uL (0.24-0.86); MONOCYTE % 10.3 % (4.7-12.5); PLATELET COUNT 360 x10^3/uL (182-369); RDW 13.3 % (12.4-16.4)
[2024-08-26 06:44] LABS: INR 1.13 (0.83-1.09); PROTHROMBIN TIME (PATIENT) 12.3 SEC (9.7-13.0)
[2024-08-26 06:46] LABS: ACTIVATED PTT 35.4 SECONDS (25.2-36.5)
[2024-08-26 06:51] LABS: POTASSIUM 4.7 mmol/L (3.5-5.1)
[2024-08-26 06:53] LABS: CALCIUM 10.3 mg/dL (8.5-10.1)
[2024-08-26 06:54] LABS: ALBUMIN 3.3 g/dl (3.4-5.0); BLOOD UREA NITROGEN 31.1 mg/dL (7-18)
[2024-08-26 06:57] LABS: CREATININE 2.2 mg/dL (0.55-1.3)
[2024-08-26 06:58] LABS: BILIRUBIN,TOTAL 0.4 mg/dL (0.2-1)
[2024-08-26 06:59] LABS: TOT PROT 7.6 g/dl (6.4-8.2)
[2024-08-26] MEDS ORDERED: ASPIRIN 81 MG CHEWABLE TABLETS ONE (07:48)
[2024-08-26] MEDS: ASPIRIN 81 MG CHEWABLE TABLETS PO ONE (07:51)
[2024-08-26] MEDS ORDERED: ACETAMINOPHEN 500 MG TABLET (FP) PO PRN (14:05)
[2024-08-26] MEDS ORDERED: FUROSEMIDE 40 MG/4 ML INJECTABLE VIAL IVPUSH ONE (14:30)
[2024-08-26] MEDS: ALBUTEROL SO4 0.083% IH SOL 2.5 MG/3 ML VIAL.NEB. NEB ONE ×2 (15:22)
[2024-08-26] MEDS ORDERED: ACETAMINOPHEN 325 MG TABLET (FP) PO PRN (17:21)
[2024-08-26] MEDS: oxyCODONE HCL 5 MG TABLET PO PRN (17:29)
[2024-08-26] MEDS: FUROSEMIDE 40 MG/4 ML INJECTABLE VIAL IVPUSH ONE (17:29)
[2024-08-26] MEDS: CALCIUM CARBONATE 650 MG TABLET PO ONE (18:42)
[2024-08-26] MEDS: INSULIN ASPART SLIDING SCALE (NOVOLOG) 1 VIAL SQ SCH (18:45)
[2024-08-26] MEDS: traMADol HCL 50 MG TABLET PO PRN (21:38)
[2024-08-27] MEDS: SIMETHICONE 80 MG TAB.CHEW (FP) PO PRN (02:44)
[2024-08-27] MEDS: SENNOSIDES 8.6MG TABLET (FP) PO PRN (02:46)
[2024-08-27] MEDS: CALCIUM CARBONATE 650 MG TABLET PO ONE (03:18)
[2024-08-27] MEDS ORDERED: ALBUTEROL SO4 0.083% IH SOL 2.5 MG/3 ML VIAL.NEB. NEB ONE (05:50)
[2024-08-27] MEDS: LEVOTHYROXINE NA 25 MCG TABLET (FP) PO SCH (06:58)
[2024-08-27 07:33] LABS: ABSOLUTE IMMATURE GRANULOCYTES 0.05 x10^3/uL (0.0-0.031); BASOPHILS # 0.07 x10^3/uL (0.01-0.08); EOSINOPHIL % 1.4 % (0.7-5.8); EOSINOPHILS # 0.17 x10^3/uL (0.04-0.36); HEMATOCRIT 45.4 % (34.1-44.9); HEMOGLOBIN 13.9 g/dL (11.2-15.7); MCHC 30.6 g/dl (32.2-35.5); MEAN CELL VOLUME 88.3 fl (79.4-94.8); MEAN PLT VOLUME 9.9 fl (9.4-12.3); MONOCYTE # 0.81 x10^3/uL (0.24-0.86); MONOCYTE % 6.8 % (4.7-12.5); PLATELET COUNT 378 x10^3/uL (182-369); RDW 13.2 % (12.4-16.4)
[2024-08-27 08:02] LABS: POTASSIUM 5.5 mmol/L (3.5-5.1)
[2024-08-27 08:09] LABS: BLOOD UREA NITROGEN 33.2 mg/dL (7-18); CALCIUM 10.3 mg/dL (8.5-10.1)
[2024-08-27 08:11] LABS: BILIRUBIN,TOTAL 0.5 mg/dL (0.2-1); TOT PROT 7.3 g/dl (6.4-8.2)
[2024-08-27 08:12] LABS: CREATININE 2.2 mg/dL (0.55-1.3)
[2024-08-27] MEDS ORDERED: AMIODARONE HCL 200 MG TABLET PO SCH (10:00)
[2024-08-27] MEDS: amLODIPine BESYLATE 10 MG TABLET (FP) PO SCH (11:42)
[2024-08-27] MEDS: ACETAMINOPHEN 500 MG TABLET (FP) PO PRN (11:50)
[2024-08-27] MEDS: SODIUM ZIRCONIUM CYCLOSILICATE (LOKELMA) 5 GM PACKET PO SCH (12:21)
[2024-08-27] MEDS: ALBUTEROL SO4 0.083% IH SOL 2.5 MG/3 ML VIAL.NEB. NEB PRN (15:45)
[2024-08-27 17:52] LABS: EPI CELLS 3 /uL (0-25.1); HYALINE CASTS 0 /uL (0-3.1); PH,URINE 5.5 (5.0-8.0); URINE APPEARANCE CLEAR; URINE BACTERIA 3 /uL (0-1359); URINE BILIRUBIN NEGATIVE (NEGATIVE); URINE COLOR YELLOW; URINE GLUCOSE (UA) NEGATIVE (NEGATIVE); URINE KETONE NEGATIVE (NEGATIVE); URINE LEUK ESTERASE NEGATIVE (NEGATIVE); URINE NITRITE NEGATIVE (NEGATIVE); URINE PROTEIN 3+ (NEGATIVE); URINE RBC 5 /uL (0-23.9); URINE UROBILINOGEN 0.2 mg/dL (0.2-1.0)
[2024-08-27] MEDS: LIDOCAINE PATCH REMOVAL MC SCH (21:41)
[2024-08-27] MEDS: ROSUVASTATIN CA 10 MG TABLET PO SCH (21:41)
[2024-08-27] MEDS ORDERED: BUDESONIDE/FORMETEROL FUMARATE 80/4.5 mcg INHALER IH SCH (22:00)
[2024-08-28 06:09] VITALS: RESP 18
[2024-08-28 07:40] LABS: ABSOLUTE IMMATURE GRANULOCYTES 0.03 x10^3/uL (0.0-0.031); BASOPHILS # 0.07 x10^3/uL (0.01-0.08); EOSINOPHIL % 3.7 % (0.7-5.8); EOSINOPHILS # 0.35 x10^3/uL (0.04-0.36); HEMATOCRIT 45.1 % (34.1-44.9); HEMOGLOBIN 14.2 g/dL (11.2-15.7); MCHC 31.5 g/dl (32.2-35.5); MEAN CELL VOLUME 86.9 fl (79.4-94.8); MEAN PLT VOLUME 9.8 fl (9.4-12.3); MONOCYTE # 0.77 x10^3/uL (0.24-0.86); MONOCYTE % 8.2 % (4.7-12.5); PLATELET COUNT 373 x10^3/uL (182-369)
[2024-08-28 08:04] LABS: POTASSIUM 4.6 mmol/L (3.5-5.1)
[2024-08-28 08:11] LABS: ALBUMIN 3.1 g/dl (3.4-5.0); BLOOD UREA NITROGEN 36.8 mg/dL (7-18); CALCIUM 10.1 mg/dL (8.5-10.1)
[2024-08-28 08:13] LABS: BILIRUBIN,TOTAL 0.3 mg/dL (0.2-1); TOT PROT 7.4 g/dl (6.4-8.2)
[2024-08-28 08:14] LABS: CREATININE 2.2 mg/dL (0.55-1.3)
[2024-08-28] MEDS: POLYETHYLENE GLYCOL (HEALTHYLAX) 3350 17 GM PACKET PO SCH (10:29)
[2024-08-28] MEDS: LIDOCAINE 5% TOPICAL PATCH TP SCH (10:29)
[2024-08-28] MEDS: BUDESONIDE/FORMOTEROL FUMARATE 160-4.5 MCG (10.3 GM INHALER) IH SCH (10:34)
[2024-08-28] MEDS: ALLOPURINOL 300 MG TABLET (FP) PO SCH (10:34)
[2024-08-28 10:38] VITALS: BP 154/87; PULSE 90; TEMP 98.2
[2024-08-28] MEDS ORDERED: MAG HYDROX/AL HYDROX/SIMETH 30 ML UNIT-DOSE CUP PO SCH (14:00)
[2024-08-28] MEDS ORDERED: INSULIN GLARGINE (LANTUS) 100 UNITS/ML UNITS SQ SCH ×2 (14:15→22:00)
== END 2024-08-28 13:00 | disposition left against medical advice (07) | DRG 181 ==
LOC: JER 05:20 → JERBED 07:35 → J4W 12:15 → OBSVTOIN 15:28
PROVIDERS: ADMIT Family Medicine; ATTEND Family Medicine
DX: C34.90 Malignant neoplasm of unspecified part of unspecified bronchus or lung (principal); I13.0 Hypertensive heart and chronic kidney disease with heart failure and stage 1 through stage 4 chronic kidney disease, or unspecified chronic kidney disease; I47.20 Ventricular tachycardia, unspecified; J90 Pleural effusion, not elsewhere classified; I10 Essential (primary) hypertension; E78.5 Hyperlipidemia, unspecified; I25.10 Atherosclerotic heart disease of native coronary artery without angina pectoris; J44.9 Chronic obstructive pulmonary disease, unspecified; E11.9 Type 2 diabetes mellitus without complications; N18.9 Chronic kidney disease, unspecified
CPT/HCPCS: 0241U-QW; 36415; 71045-TC-FY; 71250-TC; 80053; 81003; 82962; 83036; 84443; 84484; 85025; 85610; 85730; 86850; 86900; 86901; 93005; 93010; 93306-TC; 94640; 99285-25; G0378